=== PATIENT | female | born 1955 | race American Indian/Alaskan Native ===

== ENCOUNTER 2016-12-05 11:15 | Outpatient (CLI) | payer OTHER ==
--- NOTE | 2016-12-05 15:00 | Mammography Report ---
BILATERAL DIGITAL SCREENING MAMMOGRAM with CAD: 12/05/16 11:15:00 CLINICAL: Routine screening. COMPARISON:None available. Her last mammogram was over twenty years ago. FINDINGS: The breasts are heterogeneously dense, which may obscure small masses. Right asymmetries and architectural distortion require additional imaging.No suspicious calcifications.The left breast is negative. IMPRESSION: Right asymmetries and architectural distortion requiring further workup. BI-RADS CATEGORY: 0 -- Additional Imaging Evaluation Required RECOMMENDATION: Recall for right lateralmedial , spot compression CC and MLO views and right breast ultrasound if needed. ACR BI-RADS MAMMOGRAPHIC CODES: 0 = Needs additional imaging evaluation; 1 = Negative; 2 = Benign; 3 = Probably benign; 4 = Suspicious; 5 = Malignant; 6 = Known biopsy-proven malignancy COMMENT: 1. Dense breast tissue, i.e., adenosis, fibrocystic changes, etc., may obscure an underlying neoplasm. 2. Approximately 10% of cancers are not detected with mammography. 3. A negative mammography report should not delay biopsy if a clinically suspicious mass is present. COMMENT: Patient follow-up letters are generated via our [employer] application.
== END 2016-12-05 11:16 | disposition home or self-care (01) ==
LOC: SPVWC 11:15
PROVIDERS: ATTEND Internal Medicine
DX: Z12.31 Encounter for screening mammogram for malignant neoplasm of breast (principal)
CPT/HCPCS: 77067; G0202

== ENCOUNTER 2016-12-21 13:42 | Outpatient (CLI) | payer OTHER ==
--- NOTE | 2016-12-21 15:19 | Mammography Report ---
Diagnostic right mammogram and targeted right breast ultrasound. History: Recall for asymmetries. Findings: Spot compression images demonstrate partial effacement of the previously noted asymmetric densities in the upper right breast. The parenchyma is very dense and this ultrasound of the upper half of the right breast was performed. There is no evidence of a cystic or solid mass. Impression: No suspicious imaging findings. BI-RADS code: 2. Recommendation: Annual screening.
== END 2016-12-21 13:43 | disposition home or self-care (01) ==
LOC: SPVWC 13:42
PROVIDERS: ATTEND Internal Medicine
DX: R92.8 Other abnormal and inconclusive findings on diagnostic imaging of breast (principal)
CPT/HCPCS: 76642; G0206

== ENCOUNTER 2017-01-17 15:27 | Outpatient (CLI) | payer OTHER ==
--- NOTE | 2017-01-17 16:07 | XRay Report ---
XRAY CHEST TWO VIEWS: 01/17/17 15:27:00 CLINICAL: Cough. COMPARISON: None. FINDINGS: Normal heart and pulmonary vasculature. The lungs are normally expanded and clear.The bones and soft tissues are unremarkable. IMPRESSION: Normal chest.
== END 2017-01-17 15:28 | disposition home or self-care (01) ==
LOC: SPVIMAG 15:27
PROVIDERS: ATTEND Nurse Practitioner Family
DX: R05 Cough (principal)
CPT/HCPCS: 71020